=== PATIENT | female | born 1970 | race Two or more races ===

== ENCOUNTER 2016-10-26 02:05 | Emergency (ER) | payer MEDICARE, OTHER ==
[2016-10-26] MEDS ORDERED: KETOROLAC TROMETHAMINE 60 MG/2 ML SDV IM ONE (03:44)
--- NOTE | 2016-10-26 05:37 | ER Document Report ---
[id number] Notes: Patient is a 46 year old female presents with complaint of pain over the right lower ribs. She says her sig a deep breath. Pain first started a few days ago when she was reaching upward into her closet and felt a pop and ribs. Since and the pain has been significant. She was discharged home with Percocet. She says it makes her "does not care about the pain" but she still has pain. She denies any fevers. No vomiting. No history of leg pain or leg swelling that is new. No history of DVT or PE. No other complaints at this time. No new injuries. TRAVEL OUTSIDE OF THE [place] IN LAST 30 DAYS: No - Related Data Allergies/Adverse Reactions: metronidazole [From Flagyl] Allergy (Unknown, Verified 10/21/16 14:29) rash Metronidazole HCl [From Flagyl] Allergy (Unknown, Verified 10/21/16 14:29) rash morphine [Morphine] Allergy (Verified 10/21/16 14:29) Past Medical History - Social History Smoking Status: Never Smoker Cigarette use (# per day): No Chew tobacco use (# tins/day): No Frequency of alcohol use: None Drug Abuse: None Family History: Arthritis, CAD, CVA, DM, Hyperlipidemia, Hypertension, Malignancy. denies: Thyroid Disfunction - Past Medical History Cardiac Medical History: Reports: Hx Hypercholesterolemia Endocrine Medical History: Reports: Hx Hypothyroidism GI Medical History: Reports: Hx Gastritis, Hx Gastroesophageal Reflux Disease, Hx Colonoscopy, Hx Endoscopy Musculoskeltal Medical History: Reports Hx Arthritis, Reports Hx Musculoskeletal Deformity Psychiatric Medical History: Reports: Hx Depression Past Surgical History: Reports: Hx Gynecologic Surgery - endoscopy, Hx Hysterectomy, Hx Orthopedic Surgery - laminectomy spinal fusion, knee orthoscopic surgeries - Immunizations Immunizations up to date: Yes Hx Diphtheria, Pertussis, Tetanus Vaccination: Yes Review of Systems - Review of Systems Notes: My Normal Review Basic REVIEW OF SYSTEMS: CONSTITUTIONAL : Denies fever, chills, or sweats. Denies recent illness. CARDIOVASCULAR: Right lower rib pain RESPIRATORY: Denies cough, cold, or chest congestion. Denies shortness of breath, difficulty breathing, or wheezing. GASTROINTESTINAL: Denies abdominal pain. Denies nausea, vomiting, or diarrhea. Denies constipation. Last BM: MUSCULOSKELETAL: Denies neck or back pain or joint pain or swelling. SKIN: Denies rash or skin lesions. NEUROLOGICAL: Denies altered mental status or loss of consciousness. Denies headache. Denies weakness or paralysis or loss of use of either side. Denies problems with gait or speech. Denies sensory or motor loss. ALL OTHER SYSTEMS REVIEWED AND NEGATIVE. Physical Exam - Vital signs Vitals: Temp Pulse Resp BP Pulse Ox 97.8 F 84 16 143/86 H 100 10/26/16 02:34 10/26/16 02:34 10/26/16 02:34 10/26/16 02:34 10/26/16 02:34 - Notes Notes: General Appearance: Well nourished, alert, cooperative, no acute distress, moderate obvious discomfort. Vitals: reviewed, See vital signs table. Head: no swelling or tenderness to the head Eyes: PERRL, EOMI, Conjuctiva clear Mouth: No decreasd moisture Chest wall: Patient has pinpoint easily reproducible pain to palpation of the right lower ribs. Neck: Supple, no neck tenderness, No thyromegaly Lungs: No wheezing, No rales, No rhonci, No accessory muscle use, good air exchange bilaterally. Heart: Normal rate, Regular rythm, No murmur, no rub Abdomen: Normal BS, soft, No rigidity, No abdominal tenderness, No guarding, no rebound, no abdominal masses, no organomegaly. No pain to palpation of the abdomen itself. Extremities: strength 5/5 in all extremities, good pulses in all extremities, no swelling or tenderness in the extremities, no edema. Skin: warm, dry, appropriate color, no rash Course - Vital Signs Vital signs: Temp Pulse Resp BP Pulse Ox 98.0 F 111 H 16 133/88 H 100 10/26/16 05:43 10/26/16 05:43 10/26/16 05:43 10/26/16 05:43 10/26/16 05:43 - Transfer of Care Notes: 10/26/16 07:38 Patient will be discharged home. Patient encouraged to take the Toradol as prescribed. Patient was given Toradol here which helped her pain significantly. I do suspect this is muscle skeletal. The pain is very tender over pinpoint area over the ribs itself. Patient herself even says that she "I feel like the pain is in my ribs. I do not feel pain outside the ribs." I do not have concern for PE. Patient is not tachycardic, she's not tachypneic, she' s not hypoxemic, and the pain is very easily reproducible palpation and movement. Her to return to ER she has difficulty breathing with fevers, or feels unwell. Patient given incentive spirometer. Dictation of this chart was performed using voice recognition software; therefore, there may be some unintended grammatical errors. Discharge - Discharge Clinical Impression: Rib pain on right side Condition: Good Disposition: HOME, SELF-CARE Additional Instructions: Please return to the ER immediately if you have severe worsening pain, difficulty breathing, fevers, or feel unwell. Please take the pain medicines as prescribed. Please do not drive after taking the Percocet. Please follow closely with your primary care doctor for reevaluation. Please use the incentive spirometer every 30 minutes to take a deep breath. This helps prevent the development of pneumonia. Prescriptions: Ketorolac Tromethamine [Toradol 10 mg Tablet] 10 mg PO Q8HP PRN #21 tablet PRN Reason: Oxycodone HCl/Acetaminophen [Percocet 5-325 mg Tablet] 1 tab PO Q4H PRN #15 tablet PRN Reason: Forms: Return to Work
[2016-10-26 05:46] VITALS: BP 133/88
== END 2016-10-26 05:47 | disposition home or self-care (01) ==
LOC: ER 02:05
DX: R07.81 Pleurodynia (principal); Z88.1 Allergy status to other antibiotic agents; Z88.5 Allergy status to narcotic agent
CPT/HCPCS: 99283; 96372; 71010; J1885

== ENCOUNTER 2016-12-20 22:28 | Emergency (ER) | payer MEDICARE, OTHER ==
[2016-12-21 00:27] LABS: ABSOLUTE BASOPHILS # (AUTO) 0.1 10^3/uL (0.0-0.2); ABSOLUTE EOSINOPHILS # (AUTO) 0.1 10^3/uL (0.0-0.6); ABSOLUTE LYMPHOCYTES (AUTO) 3.1 10^3/uL (0.5-4.7); ABSOLUTE MONOCYTES (AUTO) 0.9 10^3/uL (0.1-1.4); ABSOLUTE NEUT (AUTO) 6.9 10^3/uL (1.7-8.2); BASOPHILS % (AUTO) 0.8 % (0-2); EOSINOPHILS % (AUTO) 0.6 % (0-6); HEMATOCRIT 42.8 % (36.0-47.0); HEMOGLOBIN 14.3 g/dL (12.0-15.5); HGB HCT DIFFERENCE 0.1; LYMPHOCYTES % (AUTO) 28.2 % (13-45); MEAN CORPUSCULAR HEMOGLOBIN 30.2 pg (27.0-33.4); MEAN CORPUSCULAR HGB CONC 33.3 g/dL (32.0-36.0); MEAN CORPUSCULAR VOLUME 91 fl (80-97); MONOCYTES % (AUTO) 8.2 % (3-13); RED BLOOD COUNT 4.73 10^6/uL (3.72-5.28); RED CELL DISTRIBUTION WIDTH 13.3 % (11.5-14.0); SEGMENTED NEUTROPHILS % (AUTO) 62.2 % (42-78)
[2016-12-21] MEDS ORDERED: OXYCODONE-ACETAMINOPHEN 5-325 MG TABLET PO ONE (01:14)
--- NOTE | 2016-12-21 01:18 | ER Document Report ---
ED Extremity Problem, Lower - General Chief Complaint: Ankle Swelling Stated Complaint: ANKLE SWELLING Time seen by provider: 01:14 Mode of Arrival: Ambulatory Information source: Patient TRAVEL OUTSIDE OF THE [place] IN LAST 30 DAYS: No - HPI Patient complains to provider of: Pain, Swelling Location: Ankle Occurred: Last week Onset/Duration: Gradual, Persistent, Waxing and waning Quality of pain: Achy, Fullness, Pressure Severity: Moderate Pain Level: 3 Recent injury: No Associated symptoms: denies: Chest pain, Short of breath Exacerbated by: Movement, Walking Relieved by: Nothing Notes: Patient is a 46-year-old female presenting to the emergency room complaining of painful swelling to bilateral lower extremities that's been going on for the past 7-10 days, she denies any injury, no chest pain or shortness of breath, she is a history of these symptoms previously, states that she has been 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 to 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 because her brother recently in [place], and she is traveling to [place] with his remains tomorrow, therefore she ran out of her pain management treatment medication and will be unable to follow-up until returning from [place] in 10 days - Related Data Allergies/Adverse Reactions: metronidazole [From Flagyl] Allergy (Unknown, Verified 10/21/16 14:29) rash Metronidazole HCl [From Flagyl] Allergy (Unknown, Verified 10/21/16 14:29) rash morphine [Morphine] Allergy (Verified 10/21/16 14:29) Past Medical History - General Information source: Patient - Social History Smoking Status: Never Smoker Chew tobacco use (# tins/day): No Frequency of alcohol use: None Drug Abuse: None Family History: Arthritis, CAD, CVA, DM, Hyperlipidemia, Hypertension, Malignancy. denies: Thyroid Disfunction Patient has suicidal ideation: No Patient has homicidal ideation: No - Past Medical History Cardiac Medical History: Reports: Hx Hypercholesterolemia Endocrine Medical History: Reports: Hx Hypothyroidism Renal/ Medical History: Denies: Hx Peritoneal Dialysis GI Medical History: Reports: Hx Gastritis, Hx Gastroesophageal Reflux Disease, Hx Colonoscopy, Hx Endoscopy Musculoskeltal Medical History: Reports Hx Arthritis, Reports Hx Musculoskeletal Deformity Psychiatric Medical History: Reports: Hx Depression Past Surgical History: Reports: Hx Gynecologic Surgery - endoscopy, Hx Hysterectomy, Hx Orthopedic Surgery - laminectomy spinal fusion, knee orthoscopic surgeries - Immunizations Immunizations up to date: Yes Hx Diphtheria, Pertussis, Tetanus Vaccination: Yes Review of Systems - Review of Systems Constitutional: No symptoms reported EENT: No symptoms reported Cardiovascular: Edema Respiratory: No symptoms reported Gastrointestinal: No symptoms reported Genitourinary: No symptoms reported Female Genitourinary: No symptoms reported Musculoskeletal: See HPI Skin: No symptoms reported Hematologic/Lymphatic: No symptoms reported Neurological/Psychological: No symptoms reported -: Yes All other systems reviewed and negative Physical Exam - Vital signs Vitals: Temp Pulse Resp BP Pulse Ox 98.2 F 120 H 18 137/90 H 97 12/20/16 22:34 12/20/16 22:34 12/20/16 22:34 12/20/16 22:34 12/20/16 22:34 Interpretation: Normal - General General appearance: Appears well, Alert - HEENT Head: Normocephalic, Atraumatic Eyes: Normal Pupils: PERRL - Respiratory Respiratory status: No respiratory distress Chest status: Nontender Breath sounds: Normal Chest palpation: Normal - Cardiovascular Rhythm: Regular Heart sounds: Normal auscultation Murmur: No - Abdominal Inspection: Normal Distension: No distension Bowel sounds: Normal Tenderness: Nontender Organomegaly: No organomegaly - Back Back: Normal, Nontender - Extremities General upper extremity: Normal inspection, Nontender, Normal color, Normal ROM , Normal temperature General lower extremity: Normal inspection, Nontender, Normal color, Normal ROM , Normal temperature, Normal weight bearing. No: Helen's sign - Neurological Neuro grossly intact: Yes Cognition: Normal Orientation: AAOx4 Mallory Coma Scale Eye Opening: Spontaneous Mallory Coma Scale Verbal: Oriented Mallory Coma Scale Motor: Obeys Commands [place] Coma Scale Total: 15 Speech: Normal Motor strength normal: LUE, RUE, LLE, RLE Sensory: Normal - Psychological Associated symptoms: Normal affect, Normal mood - Skin Skin Temperature: Warm Skin Moisture: Dry Skin Color: Normal Course - Re-evaluation Re-evalutation: 12/21/16 01:31 On physical exam there is no evidence of peripheral edema, erythema, lesions, distal sensation and motor is intact with 2+ DP pulses, since patient is leaving town for 10 days due to of a family member, I agreed to give her a prescription for small amount of pain medication but advised her to follow-up with her primary care provider and paint process engineer when she returns, patient acknowledges understanding and agreement with this plan - Vital Signs Vital signs: Temp Pulse Resp BP Pulse Ox 98.2 F 82 18 130/92 H 98 12/20/16 22:34 12/21/16 01:21 12/21/16 01:21 12/21/16 01:21 12/21/16 01:21 - Laboratory Result Diagrams: 12/21/16 00:10 Laboratory results interpreted by me: 12/21/16 00:10 WBC 11.0 H Discharge - Discharge Clinical Impression: Peripheral edema Condition: Stable Disposition: HOME, SELF-CARE Instructions: Edema, Peripheral ([facility]) Additional Instructions: Follow up with your primary care provider and paint process engineer in one to 2 days. Return to the emergency room immediately if symptoms worsen or any additional concerns. Prescriptions: Oxycodone HCl/Acetaminophen [Percocet 5-325 mg Tablet] 1 - 2 tab PO ASDIR PRN # 15 tablet PRN Reason:
[2016-12-21 01:26] VITALS: BP 130/92
== END 2016-12-21 01:37 | disposition home or self-care (01) ==
LOC: ER 22:28
DX: R60.9 Edema, unspecified (principal); E78.00 Pure hypercholesterolemia, unspecified; E03.9 Hypothyroidism, unspecified; Z90.710 Acquired absence of both cervix and uterus; Z98.1 Arthrodesis status; Z88.6 Allergy status to analgesic agent
CPT/HCPCS: 99283; 36415; 85025; A9270

== ENCOUNTER 2017-07-09 17:34 | Emergency (ER) | payer MEDICARE, OTHER ==
[2017-07-09] MEDS ORDERED: KETOROLAC TROMETHAMINE 60 MG/2 ML SDV IM ONE (18:13)
--- NOTE | 2017-07-09 18:21 | ER Document Report ---
ED Medical Screen (RME) - General Chief Complaint: Pain All Over Stated Complaint: BODYACHES Time Seen by Provider: 07/09/17 18:12 Mode of Arrival: Ambulatory Information source: Patient TRAVEL OUTSIDE OF THE [place] IN LAST 30 DAYS: No - HPI Patient complains to provider of: pain all over, swollen ankles Onset: Other - Pt. with c/o generalized bodyaches and swollen ankles for the past 2 weeks. Denies CP, SOB - Related Data Allergies/Adverse Reactions: metronidazole [From Flagyl] Allergy (Unknown, Verified 07/09/17 17:43) rash Metronidazole HCl [From Flagyl] Allergy (Unknown, Verified 07/09/17 17:43) rash Past Medical History - Social History Chew tobacco use (# tins/day): No Frequency of alcohol use: None Drug Abuse: None - Past Medical History Cardiac Medical History: Reports: Hx Hypercholesterolemia, Hx Hypertension Endocrine Medical History: Reports: Hx Diabetes Mellitus Type 2, Hx Hypothyroidism Renal/ Medical History: Denies: Hx Peritoneal Dialysis GI Medical History: Reports: Hx Gastritis, Hx Gastroesophageal Reflux Disease, Hx Colonoscopy, Hx Endoscopy Musculoskeltal Medical History: Reports Hx Arthritis, Reports Hx Musculoskeletal Deformity Psychiatric Medical History: Reports: Hx Depression Past Surgical History: Reports: Hx Gynecologic Surgery - endoscopy, Hx Hysterectomy, Hx Orthopedic Surgery - laminectomy spinal fusion, knee orthoscopic surgeries - Immunizations Immunizations up to date: Yes Hx Diphtheria, Pertussis, Tetanus Vaccination: Yes
[2017-07-09 18:42] LABS: ABSOLUTE BASOPHILS # (AUTO) 0.1 10^3/uL (0.0-0.2); ABSOLUTE EOSINOPHILS # (AUTO) 0.1 10^3/uL (0.0-0.6); ABSOLUTE MONOCYTES (AUTO) 0.6 10^3/uL (0.1-1.4); ABSOLUTE NEUT (AUTO) 5.4 10^3/uL (1.7-8.2); EOSINOPHILS % (AUTO) 0.6 % (0-6); HEMATOCRIT 43.2 % (36.0-47.0); HEMOGLOBIN 14.6 g/dL (12.0-15.5); HGB HCT DIFFERENCE 0.6; LYMPHOCYTES % (AUTO) 32.9 % (13-45); MEAN CORPUSCULAR HEMOGLOBIN 29.6 pg (27.0-33.4); MEAN CORPUSCULAR HGB CONC 33.7 g/dL (32.0-36.0); MEAN CORPUSCULAR VOLUME 88 fl (80-97); MONOCYTES % (AUTO) 6.6 % (3-13); RED BLOOD COUNT 4.93 10^6/uL (3.72-5.28); SEGMENTED NEUTROPHILS % (AUTO) 58.9 % (42-78); WHITE BLOOD COUNT 9.1 10^3/uL (4.0-10.5)
--- NOTE | 2017-07-09 18:51 | RADIOLOGY REPORT (SQ) ---
EXAM DESCRIPTION: CHEST PA/LAT COMPLETED DATE/TIME: 07/09/2017 6:42 pm REASON FOR STUDY: weakness COMPARISON: 10/26/2016 EXAM PARAMETERS: NUMBER OF VIEWS: two views TECHNIQUE: Digital Frontal and Lateral radiographic views of the chest acquired. RADIATION DOSE: NA LIMITATIONS: none FINDINGS: LUNGS AND PLEURA: No opacities, masses or pneumothorax. No pleural effusion. MEDIASTINUM AND HILAR STRUCTURES: No masses or contour abnormalities. HEART AND VASCULAR STRUCTURES: Heart normal size. No evidence for failure. BONES: No acute findings. HARDWARE: None in the chest. OTHER: No other significant finding. IMPRESSION: NO SIGNIFICANT RADIOGRAPHIC FINDING IN THE CHEST. TECHNICAL DOCUMENTATION: JOB ID: [id number] Acceptd- All Rights Reserved
[2017-07-09 18:55] LABS: ALANINE AMINOTRANSFERASE 78 U/L (9-52); ALKALINE PHOSPHATASE 98 U/L (38-126); ANION GAP 16 (5-19); APPEARANCE,URINE CLOUDY; ASPARTATE AMINO TRANSFERASE 45 U/L (14-36); BILIRUBIN,DIRECT 0.3 mg/dL (0.0-0.4); BILIRUBIN,TOTAL 0.5 mg/dL (0.2-1.3); BILIRUBIN,URINE NEGATIVE (NEGATIVE); BLOOD UREA NITROGEN 14 mg/dL (7-20); CALCIUM 10.6 mg/dL (8.4-10.2); CARBON DIOXIDE 25 mmol/L (22-30); CHLORIDE 106 mmol/L (98-107); CREATININE RESULT 0.93 mg/dL (0.52-1.25); GLUCOSE 97 mg/dL (75-110); GLUCOSE, URINE NEGATIVE (NEGATIVE); KETONES,URINE NEGATIVE (NEGATIVE); LEUKOCYTE ESTERASE,URINE LARGE (NEGATIVE); NITRITE,URINE NEGATIVE (NEGATIVE); PROTEIN,URINE NEGATIVE (NEGATIVE); SODIUM 146.5 mmol/L (137-145); TOTAL PROTEIN 8.8 g/dL (6.3-8.2); UROBILINOGEN,URINE NEGATIVE mg/dL (<2.0)
[2017-07-09 18:57] LABS: POTASSIUM 4.6 mmol/L (3.6-5.0)
--- NOTE | 2017-07-09 20:10 | ER Document Report ---
ED General Pain - General Chief Complaint: Pain All Over Stated Complaint: BODYACHES Time Seen by Provider: 07/09/17 18:12 Mode of Arrival: Ambulatory Information source: Patient Notes: Patient is a 46-year-old female with lupus who presents to the ER for 2 weeks of body aches all over, increased swelling to her ankles which she states is normal for her lupus. She denies any cough, runny nose, dysuria, abnormal vaginal discharge, abdominal pain. She admits to a fever as high as 103F. TRAVEL OUTSIDE OF THE [place] IN LAST 30 DAYS: No - Related Data Allergies/Adverse Reactions: metronidazole [From Flagyl] Allergy (Unknown, Verified 07/09/17 17:43) rash Metronidazole HCl [From Flagyl] Allergy (Unknown, Verified 07/09/17 17:43) rash Past Medical History - General Information source: Patient - Social History Smoking Status: Never Smoker Chew tobacco use (# tins/day): No Frequency of alcohol use: None Drug Abuse: None Family History: Arthritis, CAD, CVA, DM, Hyperlipidemia, Hypertension, Malignancy. denies: Thyroid Disfunction - Past Medical History Cardiac Medical History: Reports: Hx Hypercholesterolemia, Hx Hypertension Endocrine Medical History: Reports: Hx Diabetes Mellitus Type 2, Hx Hypothyroidism Renal/ Medical History: Denies: Hx Peritoneal Dialysis GI Medical History: Reports: Hx Gastritis, Hx Gastroesophageal Reflux Disease, Hx Colonoscopy, Hx Endoscopy Musculoskeltal Medical History: Reports Hx Arthritis, Reports Hx Musculoskeletal Deformity Psychiatric Medical History: Reports: Hx Depression Past Surgical History: Reports: Hx Gynecologic Surgery - endoscopy, Hx Hysterectomy, Hx Orthopedic Surgery - laminectomy spinal fusion, knee orthoscopic surgeries - Immunizations Immunizations up to date: Yes Hx Diphtheria, Pertussis, Tetanus Vaccination: Yes Review of Systems - Review of Systems Constitutional: See HPI EENT: No symptoms reported Cardiovascular: No symptoms reported Respiratory: No symptoms reported Gastrointestinal: No symptoms reported Genitourinary: No symptoms reported Female Genitourinary: No symptoms reported Musculoskeletal: See HPI Skin: See HPI Hematologic/Lymphatic: No symptoms reported Neurological/Psychological: No symptoms reported Physical Exam - Vital signs Vitals: Pulse Resp BP Pulse Ox 93 18 125/81 98 07/09/17 20:35 07/09/17 20:35 07/09/17 20:35 07/09/17 20:35 - Notes Notes: PHYSICAL EXAMINATION: GENERAL: Well-appearing and in no acute distress. HEAD: Atraumatic, normocephalic. EYES: Pupils equal round and reactive to light, extraocular movements intact, sclera anicteric, conjunctiva are normal. ENT: ear canals without erythema or foreign body, TMs pearly [place] with good bony landmarks, nares patent, oropharynx clear without exudates. Moist mucous membranes. NECK: Normal range of motion, supple without lymphadenopathy LUNGS: CTAB and equal. No wheezes rales or rhonchi. HEART: Regular rate and rhythm without murmurs ABDOMEN: Soft, mild suprapubic tenderness. No guarding, no rebound BACK: no vertebral tenderness, normal ROM GI/: no CVA tenderness EXTREMITIES: Normal range of motion, no pitting edema. No cyanosis. NEUROLOGICAL: Cranial nerves grossly intact. Normal sensory/motor exams. PSYCH: Normal mood, normal affect. SKIN: Warm, Dry, normal turgor, no rashes or lesions noted Course - Re-evaluation Re-evalutation: 07/09/17 20:07 Patient has evidence of a UTI on urinalysis. Other blood work is unremarkable today. 07/09/17 20:43 pt was upset that I only gave her Motrin for chronic pain, she states "I will continue to come here every day until I get narcotics. I'll be back tomorrow" - Vital Signs Vital signs: Temp Pulse Resp BP Pulse Ox 93 18 125/81 98 07/09/17 20:35 07/09/17 20:35 07/09/17 20:35 07/09/17 20:35 - Laboratory Result Diagrams: 07/09/17 18:22 07/09/17 18:22 Laboratory results interpreted by me: 07/09/17 07/09/17 18:22 18:22 Sodium 146.5 H Calcium 10.6 H AST 45 H ALT 78 H Total Protein 8.8 H Ur Leukocyte Esterase LARGE H Discharge - Discharge Clinical Impression: UTI (urinary tract infection) Qualifiers: Urinary tract infection type: site unspecified Hematuria presence: without hematuria Qualified Code(s): N39.0 - Urinary tract infection, site not specified Condition: Stable Disposition: HOME, SELF-CARE Instructions: Urinary Tract Infection ([facility]) Additional Instructions: Return immediately for any new or worsening symptoms. Follow up with primary care provider, call tomorrow to make followup appointment. Prescriptions: Ibuprofen [Motrin 800 mg Tablet] 800 mg PO Q8H PRN #30 tab PRN Reason: Nitrofurantoin/Nitrofuran Mac [Macrobid 100 mg Capsule] 1 tab PO BID #20 capsule
[2017-07-09 20:36] VITALS: BP 125/81
== END 2017-07-09 20:35 | disposition home or self-care (01) ==
LOC: ER 17:34
DX: N39.0 Urinary tract infection, site not specified (principal); M79.1 Myalgia; M25.473 Effusion, unspecified ankle; R50.9 Fever, unspecified; E78.00 Pure hypercholesterolemia, unspecified; I10 Essential (primary) hypertension; E11.9 Type 2 diabetes mellitus without complications; E03.9 Hypothyroidism, unspecified; Z90.710 Acquired absence of both cervix and uterus
CPT/HCPCS: 99283; 96372; 36415; 85025; 80053; 81001; 71020; J1885

== ENCOUNTER → 2019-11-08 | Outpatient (CLI) | payer MEDICAID, MEDICARE ==
[2019-11-08 09:06] LABS: ABSOLUTE BASOPHILS # (AUTO) 0.1 10^3/uL (0.0-0.2); ABSOLUTE LYMPHOCYTES (AUTO) 2.2 10^3/uL (0.5-4.7); ABSOLUTE MONOCYTES (AUTO) 0.6 10^3/uL (0.1-1.4); ABSOLUTE NEUT (AUTO) 3.3 10^3/uL (1.7-8.2); BASOPHILS % (AUTO) 1.1 % (0-2); EOSINOPHILS % (AUTO) 0.6 % (0-6); HEMATOCRIT 41.4 % (36.0-47.0); HEMOGLOBIN 14.1 g/dL (12.0-15.5); LYMPHOCYTES % (AUTO) 35.8 % (13-45); MEAN CORPUSCULAR HGB CONC 34.1 g/dL (32.0-36.0); MEAN CORPUSCULAR VOLUME 88 fl (80-97); MONOCYTES % (AUTO) 9.5 % (3-13); PLATELET COUNT 335 10^3/uL (150-450); RED CELL DISTRIBUTION WIDTH 12.6 % (11.5-14.0); TOTAL CELLS COUNTED % (AUTO) 100 %; WHITE BLOOD COUNT 6.3 10^3/uL (4.0-10.5)
[2019-11-08 09:28] LABS: ALBUMIN 4.8 g/dL (3.5-5.0); ALKALINE PHOSPHATASE 105 U/L (38-126); ANION GAP 14 (5-19); ASPARTATE AMINO TRANSFERASE 29 U/L (14-36); BILIRUBIN,DIRECT 0.4 mg/dL (0.0-0.4); BILIRUBIN,TOTAL 0.8 mg/dL (0.2-1.3); BLOOD UREA NITROGEN 18 mg/dL (7-20); CALCIUM 10.5 mg/dL (8.4-10.2); CARBON DIOXIDE 24 mmol/L (22-30); CHLORIDE 102 mmol/L (98-107); CHOLESTEROL 174.05 mg/dL (0-200); GLUCOSE 121 mg/dL (75-110); TOTAL PROTEIN 8.8 g/dL (6.3-8.2); TRIGLYCERIDES 178 mg/dL (<150)
[2019-11-08 09:40] LABS: DIRECT LDL 84 mg/dL (<100)
[2019-11-08 09:44] LABS: VLDL CHOLESTEROL 35.6 mg/dL (10-31)
== END ==
LOC: OD 08:30
PROVIDERS: ATTEND Nurse Practitioner Psychiatric/Mental Health
DX: Z00.00 Encounter for general adult medical examination without abnormal findings (principal); F25.0 Schizoaffective disorder, bipolar type; Z79.899 Other long term (current) drug therapy
CPT/HCPCS: 36415; 80053; 80061; 84443; 85025